=== PATIENT | female | born 1970 | race Hispanic/Latino ===

== ENCOUNTER 2017-01-26 09:30 | Day surgery (SDC) | payer OTHER ==
[2017-01-26] MEDS ORDERED: Lactated Ringer's 1,000 ML IV ONE ×2 (10:30→11:35)
[2017-01-26] MEDS ORDERED: Propofol 10 mg/ml Inj (20 ML) ONE (10:47)
[2017-01-26] MEDS ORDERED: ePHEDrine 50 mg/ml Inj ONE (10:47)
[2017-01-26] MEDS ORDERED: Rocuronium 10 mg/ml (5 ml) ONE (10:47)
[2017-01-26] MEDS ORDERED: Midazolam 2 MG/2 ML VIAL ONE (10:47)
[2017-01-26] MEDS ORDERED: Succinylcholine 200 mg/10 ml Inj IV ONE (10:47)
[2017-01-26 10:56] LABS: BASO % 0.9 % (0.0-2.0); EOS # 0.1 K/uL (0.0-0.7); EOS % 1.7 % (0.0-4.0); HEMATOCRIT 35.6 % (34.0-47.0); LYMPH # 1.8 K/uL (1.0-4.3); LYMPH % 30.5 % (20.0-40.0); MEAN CELL VOLUME 90.9 fl (81.0-99.0); MEAN CORPUSCULAR HEMOGLOBIN 30.5 pg (27.0-31.0); MEAN CORPUSCULAR HGB CONC 33.5 g/dL (33.0-37.0); MEAN PLATELET VOLUME 9.3 fl (7.2-11.7); MONO # 0.4 K/uL (0.0-0.8); MONO % 6.7 % (0.0-10.0); NEUT # 3.5 K/uL (1.8-7.0); NEUT % 60.2 % (50.0-75.0); RED CELL DISTRIBUTION WIDTH 13.5 % (11.5-14.5); WHITE BLOOD COUNT 5.7 K/uL (4.8-10.8)
[2017-01-26] MEDS ORDERED: Bupivacaine 0.5% Inj(30mL) ONE (11:10)
[2017-01-26] MEDS ORDERED: Sterile Water 10 ML IV ONE (11:12)
[2017-01-26] MEDS ORDERED: Dexamethasone 4 mg/1 ml ONE (12:01)
[2017-01-26] MEDS ORDERED: Neostigmine Methylsulfate 2 MG/2 ML ML IV ONE (12:51)
[2017-01-26] MEDS ORDERED: Lactated Ringer's 1,000 ML IV SCH (13:18)
[2017-01-26] MEDS ORDERED: Oxycodone/Acetaminophen 5/325 mg Tab PO PRN (13:26)
[2017-01-26] MEDS ORDERED: Trimethobenzamide 200 mg/2 mL Inj IM ONE (14:00)
[2017-01-26] MEDS: HYDROmorphone 0.5 mg/0.5 ml ISec IVP PRN ×2 (14:14→14:15)
[2017-01-26 15:41] VITALS: RESP 18
[2017-01-26 16:46] VITALS: TEMP 97.8
[2017-01-26 17:29] VITALS: BP 116/70; PULSE 85; O2SAT 97
--- NOTE | 2017-01-30 10:15 | PCM.OP ---
Operative Report - Operative Report Date of Surgery/Procedure: 01/26/17 Time of Surgery/Procedure: 08:00 Surgeon: Dr. Ab Dick Circus Rider: Dr.Andrea Toussaint Anesthesia/Sedation: General/Dr. Joel Pre-Operative Diagnosis: Endometriosis Post-Operative Diagnosis: same Indication for Surgery: Abdominal pain Operative Findings: jessie-rectal endometriosis Procedure/Operation Description: 1-Excision perirectal endometriosis. Brief History: This 46 year old woman was already brought to the operating room by Dr. Nakul Toussaint for endometriosis when he noticed a lesion on the rectum in the jessie-rectal space. Intraoperative consultaion was requested. Description of Procedure: The patient had already been briught to the operating room by Dr. Toussaint via the robot when he noticed a lesion in the per-rectal space (separate dictation Dr. Toussaint). The robotic console was turned over and using both blunt and sharp dissection with the aid of electrocautery the lesion was incised circumferentially with a small margin of normal tissue. The wall of the rectum was delicately lifted using the same technique with meticulous attention to hemostasis. The lesion was lifted from the rectum and sent to pathology as a separate specimen. The area was examined and hemostasis was deemed adeqaute. The operation was then turned over to Dr. Toussaint (separate dictation Dr. Toussaint) Estimated Blood Loss: 5 cc Complications: none Specimen: jessie-rectal endometriosis Discharge & Condition: stable
--- NOTE | 2017-02-02 03:11 | OP ---
SURGEON: Nakul Toussaint MD BASS SINGER: Ab Dick MD TYPE OF ANESTHESIA: General endotracheal, Dr. Joel. PREOPERATIVE DIAGNOSES: Pelvic pain, bladder pain, dysmenorrhea, dyspareunia and known history of endometriosis. POSTOPERATIVE DIAGNOSES: Pelvic pain, bladder pain, dysmenorrhea, dyspareunia and known history of endometriosis plus posterior cervical and anterior rectal endometriosis, endometritis. PROCEDURES PERFORMED: Cystoscopy with bilateral ureteral stenting, retrograde injection of Indocyanine Green into the right and left ureters, diagnostic hysteroscopy, laparoscopy, robotic da Pushpa excision of endometriosis, ablation of endometriosis and excision of posterior cervical endometriosis. ESTIMATED BLOOD LOSS: Minimal. COMPLICATIONS: None. SPECIMEN: Multiple samples of tissue containing endometriosis sent to pathology. INDICATION FOR THE PROCEDURE: This patient is a 46-year-old female with a prior history of surgery for pelvic pain with persistent disease. Prior to the surgery, she was counseled with regards to risks and benefits of the procedure. She also had immunological findings suggestive of endometriosis. Prior to the surgery, she was counseled with regards to the likelihood of the procedure of identifying the cause of her problem and the likelihood of successful outcome and alternative modalities of the treatment and potential risk. Ample opportunity was given to the patient about risk and she received ample opportunity to ask more questions. The patient then signed the consent and was taken to the operating room. Additionally, the patient understood that given her prior history of prior surgery it was necessary to identify the ureter by having ability to inject IC Green in the ureters and be able to visualize them throughout the procedure using the robotic surgery. DESCRIPTION OF PROCEDURE: After consent was finally obtained, the patient was brought to the OR and placed on the operating table in the dorsal lithotomy position. She was padded in all areas that were prone to pressure and at this point, she was prepped and draped in the usual standard fashion. A time-out was performed and at this point after the surgeon was donned and gloved, the cystoscope was introduced into the bladder and under direct vision, a villasenor cystoscopy was performed and attention was paid to both ureteral orifices which were in normal anatomical position. The left ureteral orifice was then catheterized with a Latvian open-ended ureteral catheter. A solution of ICG was then injected for a total of 4 mL in the left ureter after the catheter was advanced to the distal ureter. At this point, the ureteral catheter was removed. Attention was paid to the right ureteral orifice and at which point a ureteral catheter was advanced to the level of the distal ureter and additional 4 mL of IC Green was injected into right ureter. The ureteral catheter was then removed. The bladder was then inspected and noted to be free of tumor, stones, or bleeding sources. The cystoscope was then removed and a 16-Latvian Obrien catheter was placed. At this point, attention was in the vaginal area where a speculum was placed in the vagina. The anterior lip of the cervix was grasped. The uterus was dilated and the hysteroscope was inserted into uterine cavity revealing a normal size cavity with a slight arcade appearance. There was evidence of petechiae in multiple areas of the endometrium, suggestive of endometritis. This was noted and pictures were taken and at this point after placing a uterine manipulator in the uterus, attention was on the abdomen. An open laparoscopy technique was performed after making an incision below the umbilicus with the standard open laparoscopy technique. The abdominal cavity was entered in a blunt fashion. A trocar was inserted bluntly and the abdomen was insufflated. After insufflating the abdominal cavity under direct visualization, 3 additional trocars were inserted in right lower quadrant, left mid quadrant and right upper quadrant. At this point, the da Pushpa robot was brought onto the field and it was aimed and docked. At this point, the procedure was started. Findings were consistent with area of endometriosis clearly in the posterior cervical and anterior perirectal area. I proceeded with excision of the retrocervical endometriosis which was done with extreme care, not to injure the bowel. An additional endometriosis was noted in the perirectal area right on top of the rectum. Dr. Dick was called in from general surgery and he excised that area and this was dissected separately. At this point, additional areas of erythema that was inflammatory type lesions were observed in the posterior cul-de-sac and these were vaporized completely. Additional small areas were also vaporized in the left and right pelvic sidewalls with extreme care to avoid the ureters on both sides, thanks to fluorescence technology. At this point, the pelvis was irrigated. Bowel was in perfect condition. The da Pushpa robot was undocked. The abdomen was desufflated. The instruments were removed. The incision was closed in layers with 0 PDS for the fascia and 4-0 Monocryl for the skin. All the instruments were removed also from the vagina. The cervix was inspected, appeared to be dry. At this point, the patient was woken up and taken to recovery room in excellent condition. Nakul Toussaint MD
== END 2017-01-26 17:45 | disposition home or self-care (01) ==
LOC: H.OPSURG 09:30
PROVIDERS: ATTEND Obstetrics & Gynecology Reproductive Endocrinology
DX: N80.0 Endometriosis of uterus (principal); R10.2 Pelvic and perineal pain; N94.6 Dysmenorrhea, unspecified; R39.89 Other symptoms and signs involving the genitourinary system; N80.8 Other endometriosis; N80.4 Endometriosis of rectovaginal septum and vagina
CPT/HCPCS: 36415; 45171; 52005; 58563; 85025; 86850; 86900; 88305; C1729; J0330; J0690; J1100; J1170; J2250; J2405; J2704; J2710; J2765; J3010; J3250; J7030; J7040; J7120